=== PATIENT | female | born 1985 | race Caucasian/White ===

== ENCOUNTER 2022-09-10 09:44 | Emergency (ER) | payer OTHER, MEDICAID, SELFPAY ==
--- NOTE | ~2022-09-10 | XR_ITS ---
EXAMINATION: XR knee RT min 4V DATE: 09/10/2022 10:20 INDICATION: Right knee pain TECHNIQUE: Five views of the right knee were obtained. COMPARISON: None. FINDINGS: Alignment is normal. No fracture or osteochondral lesion. Joint spaces are normal with no e rosions. No joint effusion/synovitis. There is infrapatellar anterior soft tissue swelling. IMPRESSION: 1. No acute osseous abnormality. Reviewed, dictated and finalized at location [facility]
--- NOTE | 2022-09-10 09:47 | ED.LOWEXIN ---
HPI - Extremity Injury (Lower) General Chief Complaint: Extremity Problem,Nontraumatic Stated Complaint: pain in right knee Time Seen by Provider: 09/10/22 09:48 Source: patient and RN notes reviewed History of Present Illness HPI Narrative: patient is a 37-year-old female who presents to the Urgent Care with complaints of right knee pain that started yesterday. Patient denies any traumatic injury, fall. Patient states that she feels like it is swollen and is most painful to the anterior aspect wrapping around the lateral side. Patient has been taking ibuprofen. No other acute complaints. No acute distress noted. Patient aware of the plan care. Some parts of this dictation were generated by voice recognition software and may contain typographical and/or grammatical inaccuracies. Related Data Home Medications Medication Instructions Recorded Confirmed amlodipine 10 mg tablet mg 09/10/22 Allergies Allergy/AdvReac Type Severity Reaction Status Date / Time No Known Allergies Allergy Verified 09/10/22 10:05 Review of Systems Review of Systems: CONSTITUTIONAL: Denies fever, chills, or sweats. EYES: Denies visual changes, redness, or discharge. ENT: Denies rhinorrhea, congestion, sore throat, or otalgia. CARDIOVASCULAR: Denies chest pain, palpitations, or edema. RESPIRATORY: Denies cough or dyspnea. GASTROINTESTINAL: Denies abdominal pain, nausea, vomiting, or diarrhea. GENITOURINARY: Denies dysuria or hematuria. SKIN: Denies rash or itching. MUSCULOSKELETAL: Reports of right knee pain NEUROLOGIC: Denies headache, numbness, or weakness. All other systems reviewed are negative, except as documented in HPI. PMFSH Comments At the time of my signature, I reviewed and agree with the nursing past medical, surgical, social, and family history. There is no relevant family history pertinent to the patient complaint. Exam Narrative: GENERAL: This is a well-nourished, well-developed patient, in no apparent distress. HEAD: normocephalic, atraumatic. EYES: PERRL. Sclera clear/white. Vision is grossly intact. EARS: External ears normal NOSE: External nose normal with no obvious nasal discharge, nares without redness, no rhinorrhea. THROAT: Mucous membranes moist NECK: Neck supple SKIN: warm, intact with no suspicious lesions or rash, good texture and turgor. NEURO: awake, alert, and oriented to person, place and time. There were no obvious focal neurologic abnormalities. EXTREMITIES: no obvious edema, ecchymosis or erythema to the right knee. Moderate tenderness to the anterior aspect of the right patellar extending throughout the lateral aspect and posterior aspects. No obvious Santizo cyst palpated. Range of motion not tested due to exacerbated pain. Pain worsen with weight-bearing. Positive strong right pedal pulse with capillary refill less than 2 seconds. Course Course Level of Care: Express Care Visit Vital Signs Vital signs: Vital Signs Temperature 98.1 F 09/10/22 09:52 Pulse Rate 119 H 09/10/22 09:52 Respiratory Rate 20 09/10/22 09:52 Blood Pressure 184/134 H 09/10/22 09:52 Pulse Oximetry 100 09/10/22 09:52 Oxygen Delivery Room Air 09/10/22 09:52 Temperature 98.1 F 09/10/22 09:52 Pulse Rate 119 H 09/10/22 09:52 Respiratory Rate 20 09/10/22 09:52 Blood Pressure 184/134 H 09/10/22 09:52 Pulse Oximetry 100 09/10/22 09:52 Oxygen Delivery Room Air 09/10/22 09:52 Reviewed- Patient is informed that they may have pre-hypertension or hypertension based on a blood pressure reading in the department. I recommend the patient call the primary care provider listed on their discharge instructions or a physician of their choice this week to arrange follow-up for further evaluation of possible pre-hypertension or hypertension. MDM - Extremity Injury (Lower) MDM Narrative Medical decision making narrative: reviewed x-ray results with the patient. She is aware that X-ray was
[2022-09-10 09:52] VITALS: BP 184/134; PULSE 119; RESP 20; TEMP 36.7; O2SAT 100
[2022-09-10 10:40] VITALS: BP 160/100
== END 2022-09-10 10:40 | disposition home or self-care (01) ==
PROVIDERS: Emergency Provider Nurse Practitioner Family
DX: M25.561 Pain in right knee (principal); I10 Essential (primary) hypertension
CPT/HCPCS: 73564; 99213; G0463